=== PATIENT | female | born 1980 | race African-American/Black ===

== ENCOUNTER → 2017-06-15 | Outpatient (CLI) | payer OTHER | LOC: COL.RAD 06-04 08:30 | DX: K59.00 Constipation, unspecified (principal) ==

== ENCOUNTER → 2017-06-20 | Outpatient (CLI) | payer OTHER | LOC: COL.RAD 06-12 08:30 | DX: K59.00 Constipation, unspecified (principal) ==

== ENCOUNTER → 2017-08-24 | Outpatient (CLI) | payer OTHER | LOC: COL.RAD 08:32 | DX: R10.11 Right upper quadrant pain (principal) | CPT/HCPCS: A9537 ==